=== PATIENT | female | born 1995 | race Caucasian/White ===

== ENCOUNTER 2019-11-17 15:24 | Outpatient (CLI) | payer OTHER, SELFPAY ==
[2019-11-19 08:57] LABS: TB Skin Test Erythema 0 mm; TB Skin Test Induration 0 mm (0-10); TB Skin Test Interpretation Negative (Negative); TB Skin Test Site Left Arm
== END 2019-11-17 15:25 | disposition home or self-care (01) ==
LOC: CHSLAB 15:27
PROVIDERS: PCP Family Medicine; Visit Provider Family Medicine
DX: Z02.1 Encounter for pre-employment examination (principal); Z00.00 Encounter for general adult medical examination without abnormal findings
CPT/HCPCS: 36415; 86580; 87491; 87591

== ENCOUNTER 2020-08-02 09:41 | Outpatient (CLI) | payer OTHER, SELFPAY ==
--- NOTE | ~2020-08-02 | US_ITS ---
US breast LT limited 08/02/2020 10:09 Indication: Palpable lump that has grown for 2 weeks. Procedure: High-resolution Limited ultrasound of the left breast Comparison: No prior studies for comparison. Findings: In the area of palpable concern at 4:00, 5 cm from the nipple there is a superficially loca steven oval hypoechoic mass measuring 1.6 x 0.2 x 1.4 cm. This mass contains low level internal echoes w ith parallel orientation and possible tract to the skin surface, most likely complicated/infected bunny aceous cyst. No posterior features. Impression: 1: Oval circumscribed hypoechoic mass subcutaneous aspect of the left breast at 4:00, 5 cm from the n ipple measuring up to 1.4 cm. This is most likely benign complicated/infected sebaceous cyst with pos sible sinus tract to the skin surface. Consider surgical excision. BI-RADS CATEGORY 3-PROBABLY BENIGN FINDING RECOMMENDATION: Recommend follow-up ultrasound in 2-3 months following appropriate therapy. If the ma ss is persistent at that time, consider additional evaluation with mammography. Reviewed, dictated and finalized at location A. Impression: 1: Oval circumscribed hypoechoic mass subcutaneous aspect of the left breast at 4:00, 5 cm from the nipple measuring up to 1.4 cm. This is most likely benign complicated/infected sebaceous cyst with possible sinus tract to the skin surfa ce. Consider surgical excision. BI-RADS CATEGORY 3-PROBABLY BENIGN FINDING RECOMMENDATION: Recommend follow-up ultrasound in 2-3 months following appropri ate therapy. If the mass is persistent at that time, consider additional evalua tion with mammography.
== END 2020-08-02 09:42 | disposition home or self-care (01) ==
LOC: CHSIMG 09:43
PROVIDERS: PCP Family Medicine; Visit Provider Family Medicine
DX: N63.20 Unspecified lump in the left breast, unspecified quadrant (principal); Q83.9 Congenital malformation of breast, unspecified
CPT/HCPCS: 76642

== ENCOUNTER 2020-09-01 10:33 | Outpatient (CLI) | payer OTHER, SELFPAY ==
[2020-09-01 10:45] LABS: Basophils Absolute Auto 0.05 K/mm3 (0.00-0.10); Basophils Percent Auto 0.7 % (0.0-1.0); Eosinophils Absolute Auto 0.11 K/mm3 (0.02-0.50); Eosinophils Percent Auto 1.6 % (1.0-6.0); Hematocrit 37.6 % (35.0-49.0); Hemoglobin 11.9 g/dL (12.0-15.0); Immature Granulocyte Absolute 0.02 K/mm3 (0.00-0.00); Immature Granulocyte Percent A 0.3 % (0.0-0.0); Lymphocytes Absolute Auto 2.03 K/mm3 (1.10-4.50); Lymphocytes Percent Auto 29.3 % (18.0-42.0); Mean Corpuscular HGB Conc 31.6 g/dL (32.0-36.0); Mean Corpuscular Hemoglobin 25.4 pg (27.0-31.0); Mean Corpuscular Volume 80.2 fL (78.0-102.0); Mean Platelet Volume 9.3 fl (9.2-11.8); Monocytes Absolute Auto 0.66 K/mm3 (0.10-0.90); Monocytes Percent Auto 9.5 % (2.0-11.0); Neutrophils Absolute Auto 4.1 K/mm3 (1.7-7.2); Neutrophils Percent Auto 58.6 % (50.0-70.0); Platelet Count Result 288 K/mm3 (150-420); Red Blood Count 4.69 M/mm3 (4.20-5.40); Red Cell Distribution Width 13.5 % (11.6-14.4); White Blood Count 6.9 K/mm3 (4.8-10.8)
[2020-09-01 12:02] LABS: Anion Gap 13 mmol/L (8-16); Blood Urea Nitrogen 21 mg/dL (7-18); Calcium 8.8 mg/dL (8.5-10.1); Carbon Dioxide 24 mmol/L (21-32); Chloride 104 mmol/L (98-108); Estimated Glomerular Filt Rate > 60; Glucose 81 mg/dL (70-99); Osmolality Calculated 294 mOsm/kg (285-295); Potassium 4.3 mmol/L (3.5-5.1); Sodium 141 mmol/L (136-145)
== END 2020-09-01 10:34 | disposition home or self-care (01) ==
LOC: CHSLAB 10:35
PROVIDERS: PCP Family Medicine
DX: N60.09 Solitary cyst of unspecified breast (principal); Z01.818 Encounter for other preprocedural examination
CPT/HCPCS: 36415; 80048; 85025

== ENCOUNTER 2020-12-09 10:22 | Outpatient (CLI) | payer OTHER, SELFPAY ==
[2020-12-09 10:30] LABS: Hematocrit 37.1 % (35.0-49.0); Hemoglobin 11.8 g/dL (12.0-15.0); Mean Corpuscular HGB Conc 31.8 g/dL (32.0-36.0); Mean Corpuscular Hemoglobin 25.9 pg (27.0-31.0); Mean Corpuscular Volume 81.5 fL (78.0-102.0); Mean Platelet Volume 9.2 fl (9.2-11.8); Platelet Count Result 296 K/mm3 (150-420); Red Blood Count 4.55 M/mm3 (4.20-5.40); Red Cell Distribution Width 14.1 % (11.6-14.4); White Blood Count 6.9 K/mm3 (4.8-10.8)
== END 2020-12-09 10:23 | disposition home or self-care (01) ==
LOC: CHSLAB 10:23
PROVIDERS: PCP Family Medicine; Visit Provider Family Medicine
DX: N92.1 Excessive and frequent menstruation with irregular cycle (principal)
CPT/HCPCS: 36415; 85027

== ENCOUNTER 2020-12-10 16:07 | Outpatient (CLI) | payer OTHER, SELFPAY ==
--- NOTE | ~2020-12-10 | US_ITS ---
EXAMINATION: US pelvic complete w TV DATE: 12/10/2020 16:37 INDICATION: Pelvic pain, irregular menses TECHNIQUE: Multiple transabdominal and endovaginal sonographic images of the pelvis were obtained. COMPARISON: None. FINDINGS: The uterus measures 8.3 x 4.5 x 7.1 cm. The endometrial complex measures 9 mm. The right ov robi is not visualized however no right adnexal abnormality is seen. The left ovary measures 2.4 x 1.8 x 1.5 cm. There is normal vascular flow in the left ovary. There is trace free fluid in the pelvis, likely physiologic. IMPRESSION: 1. No sonographic correlate for the patient's symptoms. Reviewed, dictated and finalized at location B.
== END 2020-12-10 16:08 | disposition home or self-care (01) ==
LOC: CHSIMG 16:09
PROVIDERS: PCP Family Medicine; Visit Provider Nurse Practitioner Family
DX: N92.1 Excessive and frequent menstruation with irregular cycle (principal); R10.2 Pelvic and perineal pain
CPT/HCPCS: 76830; 76856

== ENCOUNTER 2021-06-09 14:28 | Outpatient (CLI) | payer OTHER, SELFPAY ==
[2021-06-11 08:53] LABS: TB Skin Test Erythema 0 mm; TB Skin Test Induration 0 mm (0-10); TB Skin Test Interpretation Negative (Negative); TB Skin Test Site Left Arm
== END 2021-06-09 14:29 | disposition home or self-care (01) ==
LOC: CHSLAB 14:30
PROVIDERS: PCP Family Medicine; Visit Provider Family Medicine
DX: Z02.1 Encounter for pre-employment examination (principal)
CPT/HCPCS: 36415; 86580

== ENCOUNTER 2021-12-31 23:37 | Emergency (ER) | payer OTHER, SELFPAY ==
--- NOTE | ~2021-12-31 | CT_ITS ---
EXAMINATION: CT abdomen pelvis wo con DATE: 01/01/2022 01:43 INDICATION: Abdominal pain, fever, vomiting TECHNIQUE: Computed tomography (CT) of the abdomen and pelvis was performed without intravenous contr ast. Automated exposure control and iterative reconstruction technique were employed. Exam dose: 400 .55 mGy-cm total exam DLP. COMPARISON: None. FINDINGS: The lung bases are clear. Normal heart size. No pericardial or pleural effusion. The gallbladder is not visualized, presumably resected. No hepatic, splenic, pancreatic, and adrenal or renal space-occupying mass lesion is evident on this limited noncontrast examination. No bile duct or pancreatic duct dilatation or pancreatic calcification. No urinary tract calculus or hydroureteronephrosis. Normal caliber of the abdominal aorta. No intraperitoneal or retroperitoneal or pelvic mass lesion or adenopathy or ascites. Normal appendix. No bowel obstruction or intraperitoneal free air. The uterus, adnexal areas and urinary bladder are unremarkable. Included skeletal structures are unremarkable. IMPRESSION: Normal appendix Reviewed, dictated and finalized at [facility]. Reviewed, dictated and finalized at location A. AND [employer]DER IMPRESSION: Normal appendix
[2021-12-31 23:40] VITALS: BP 106/73; PULSE 114; RESP 20; TEMP 36.9; O2SAT 98
[2022-01-01] MEDS: SODIUM CHLORIDE 0.9% IV 1,000 ML 999 ML IV CONT (00:33)
[2022-01-01] MEDS: ONDANSETRON INJ 4 MG/2 ML VIAL IV PUSH (00:33)
[2022-01-01 01:01] LABS: Appearance Urine Clear (Clear); Bilirubin Urine Negative (Negative); Blood Urine Negative (Negative); Glucose Urine UA Negative (Negative); Ketones Urine Negative (Negative); Leukocyte Esterase Ur 1+ LEU/UL (Negative); Nitrate Urine Negative (Negative); Protein Urine Negative (Negative); Specific Grav Ur 1.025 (1.010-1.020); Urobilinogen Urine 0.2 mg/dL (0.2-1.0)
[2022-01-01 01:02] LABS: Basophils Absolute Auto 0.03 K/mm3 (0.00-0.10); Basophils Percent Auto 0.4 % (0.0-1.0); Eosinophils Absolute Auto 0.05 K/mm3 (0.02-0.50); Eosinophils Percent Auto 0.6 % (1.0-6.0); Hematocrit 32.9 % (35.0-49.0); Hemoglobin 10.2 g/dL (12.0-15.0); Immature Granulocyte Absolute 0.09 K/mm3 (0.00-0.00); Immature Granulocyte Percent A 1.2 % (0.0-0.0); Lymphocytes Absolute Auto 0.76 K/mm3 (1.10-4.50); Lymphocytes Percent Auto 9.8 % (18.0-42.0); Mean Corpuscular Hemoglobin 25.2 pg (27.0-31.0); Mean Corpuscular Volume 81.2 fL (78.0-102.0); Mean Platelet Volume 9.6 fl (9.2-11.8); Monocytes Absolute Auto 0.76 K/mm3 (0.10-0.90); Monocytes Percent Auto 9.8 % (2.0-11.0); Neutrophils Absolute Auto 6.1 K/mm3 (1.7-7.2); Neutrophils Percent Auto 78.2 % (50.0-70.0); Platelet Count Result 285 K/mm3 (150-420); Red Blood Count 4.05 M/mm3 (4.20-5.40); Red Cell Distribution Width 13.2 % (11.6-14.4); White Blood Count 7.8 K/mm3 (4.8-10.8)
[2022-01-01 01:03] LABS: SARS-CoV-2 RNA PCR Negative (Negative)
[2022-01-01 01:09] LABS: Alanine Aminotransferase 17 U/L (14-59); Albumin Level 3.7 g/dL (3.4-5.0); Alkaline Phosphatase 61 U/L (46-116); Anion Gap 9 mmol/L (8-16); Aspartate Amino Transferase 14 U/L (15-37); Bilirubin,Total 0.2 mg/dL (0.00-1.00); Blood Urea Nitrogen 8 mg/dL (7-18); Calcium 8.1 mg/dL (8.5-10.1); Carbon Dioxide 26 mmol/L (21-32); Chloride 104 mmol/L (98-108); Estimated Glomerular Filt Rate > 60; Glucose 110 mg/dL (70-99); Osmolality Calculated 287 mOsm/kg (285-295); Potassium 3.4 mmol/L (3.5-5.1); Sodium 139 mmol/L (136-145); Total Protein 7.1 g/dL (6.4-8.2)
[2022-01-01 01:12] LABS: Add Urine Microscopic? YES; Amorphous Sediment Urine Few; Bacteria Urine Trace /hpf; Color Urine Light Yellow (Yellow); Squamous Epithelial Cell Urine Moderate /hpf (Few)
[2022-01-01 01:13] LABS: Mucus Urine Heavy /lpf
[2022-01-01 01:15] LABS: Influenza A QL RT-PCR Positive (Negative); Influenza B QL RT-PCR Negative (Negative)
[2022-01-01 01:17] LABS: Lipase 69 U/L (73-393)
[2022-01-01 01:21] LABS: Strep Group A RT-PCR Not Detected (Negative)
[2022-01-01 01:26] LABS: SPREG INTERNAL CONTROL Positive; Serum Qual hCG Negative
--- NOTE | 2022-01-01 01:32 | PC.NURSE ---
pt to xray with xray staff per stretcher.
[2022-01-01 02:57] VITALS: BP 105/70; PULSE 111; RESP 20; TEMP 38.6; O2SAT 98
[2022-01-01] MEDS: ACETAMINOPHEN 325 MG TABLET 650 MG PO (02:59)
[2022-01-01] MEDS: IBUPROFEN 400 MG TABLET 800 MG PO (03:00)
--- NOTE | 2022-01-01 03:33 | ED.NAVMDI ---
HPI - Nausea/Vomiting/Diarrhea General Chief complaint: Nausea/Vomiting/Diarrhea Stated complaint: SICKNESS Time Seen by Provider: 12/31/21 23:39 Source: patient and RN notes reviewed Mode of arrival: ambulatory Limitations: no limitations History of Present Illness MD elicited complaint: nausea, vomiting and diarrhea Onset (ago): day(s) (1) Description of vomiting: food contents and watery Associated nausea: Yes Associated abdominal pain: Yes Location of pain: periumbilical Pain consistency: constant Severity: mild Pain scale (0-10): 4 Quality: cramping, aching and dull Exacerbating factors: none Relieving factors: none Treatment prior to arrival: other OTC medicine Related Data Home Medications Medication Instructions Recorded Confirmed albuterol sulfate 90 mcg/actuation 1 puff inhalation Q4H PRN Wheezing 11/17/19 01/01/22 aerosol inhaler tramadol 50 mg tablet 50 mg PO Q4H PRN pain 09/08/20 Allergies Allergy/AdvReac Type Severity Reaction Status Date / Time cefdinir [From Omnicef] Allergy Intermediate Swelling Verified 04/29/21 09:36 Review of Systems Review of Systems: All systems reviewed & are unremarkable except as noted in HPI and below Constitutional: Constitutional: Reports no additional constitutional complaints Eyes: Eyes: Reports no additional eye complaints ENT: Reports system reviewed and no additional complaints, except as documented, Reports nasal congestion and Reports sore throat Cardiovascular: Cardiovascular: Reports no additional cardiovascular complaints Respiratory: Respiratory: Reports chest congestion, Reports cough, Reports dyspnea and Reports wheezing Gastrointestinal: Gastrointestinal: Reports no additional gastrointestinal complaints, Reports diarrhea, Reports nausea and Reports vomiting Genitourinary: Genitourinary: Reports no additional female genitourinary complaints Musculoskeletal: Musculoskeletal: Reports no additional musculoskeletal complaints and Reports myalgias Integumentary/Breasts: Skin/Breast: Reports system reviewed and no additional complaints, except as docu Neurologic: Reports system reviewed and no additional complaints, except as documented Psychiatric: Psychiatric: Reports no additional psychiatric complaints Endocrine: Endocrine: Reports no additional endocrine complaints Hematologic/Lymphatic: Hematologic/Lymphatic: Reports no additional hematologic/lymphatic complaints Allergic/Immunologic: Allergic/Immunologic: Reports no additional allergic/immunologic complaints PMFSH Past Medical History Medical History Asthma Sebaceous cyst of breast Viral conjunctivitis Surgical History Surgical History H/O removal of cyst right thigh and left breast 09/06/20 History of delivery History of tubal ligation Social History Social History Smoking status: Never smoker Exam Const: General: no acute distress and well nourished Nutritional Appearance: well nourished Orientation/consciousness: patient oriented x3 Limitations: no limitations HENMT: Head: normal to inspection Ears: external ears normal, TM's normal bilaterally and EAC's normal Face/Nose/Sinus: Normal external nose present, Normal nares present, normal facial exam and sinuses nontender Face and sinus: normal facial exam and sinuses nontender Mouth: Yes Normal oral and palatal mucosa present and Yes moist mucous membranes Teeth and gingiva: dentition normal Throat: posterior oropharynx normal Eyes: Conjunctivae: conjunctivae normal Pupils: Equal, round and reactive pupils present EOM: EOMs intact bilaterally Neck: Neck: normal visual inspection, no lymphadenopathy and no meningeal signs Chest: Chest palpation & inspection: normal inspection of the chest Resp: Effort & Inspection: normal respiratory effor
[2022-01-01 03:53] VITALS: TEMP 37.3
[2022-01-01] MEDS: SODIUM CHLORIDE 0.9% IV 500 ML 999 ML IV CONT (03:53)
[2022-01-01 03:54] VITALS: BP 100/68; PULSE 94; RESP 20; TEMP 37.3; O2SAT 94
[2022-01-01 04:20] VITALS: BP 97/64; PULSE 93; RESP 20; TEMP 37.1; O2SAT 95
[2022-01-01 04:55] VITALS: BP 105/63; PULSE 82; RESP 20; TEMP 37.1; O2SAT 94
== END 2022-01-01 05:00 | disposition home or self-care (01) ==
PROVIDERS: Emergency Provider Emergency Medicine; PCP Family Medicine
DX: J11.1 Influenza due to unidentified influenza virus with other respiratory manifestations (principal); K52.9 Noninfective gastroenteritis and colitis, unspecified; N39.0 Urinary tract infection, site not specified; Z20.822 Contact with and (suspected) exposure to COVID-19
CPT/HCPCS: 36415; 74176; 80053; 81001; 83690; 84703; 85025; 87086; 87088; 87502; 87651; 96361; 96374; 99284; A9270; J2405; J7030; J7040; U0003; U0005

== ENCOUNTER 2022-02-25 20:29 | Emergency (ER) | payer OTHER, SELFPAY ==
[2022-02-25 20:32] VITALS: BP 163/98; PULSE 76; RESP 18; TEMP 36.8; O2SAT 98
--- NOTE | 2022-02-25 20:35 | ED.GENADULT ---
HPI - General Adult General Chief complaint: Unspecified Stated complaint: Toothache Source: patient Mode of arrival: ambulatory Limitations: no limitations History of Present Illness HPI narrative: this is a 27-year-old female who presents with right upper dental pain with surrounding gum inflammation with a tender swollen right submandibular gland with no fever chills no nausea vomiting no shortness of breath. Onset (ago): day(s) Location: mouth Related Data Home Medications Medication Instructions Recorded Confirmed albuterol sulfate 90 mcg/actuation 1 puff inhalation Q4H PRN Wheezing 11/17/19 01/01/22 aerosol inhaler tramadol 50 mg tablet 50 mg PO Q4H PRN pain 09/08/20 Allergies Allergy/AdvReac Type Severity Reaction Status Date / Time cefdinir [From Omnicef] Allergy Intermediate Swelling Verified 04/29/21 09:36 Review of Systems Review of Systems: All systems reviewed & are unremarkable except as noted in HPI and below PMFSH Past Medical History Medical History Asthma Sebaceous cyst of breast Viral conjunctivitis Surgical History Surgical History H/O removal of cyst right thigh and left breast 09/06/20 History of delivery History of tubal ligation Social History Social History Smoking status: Never smoker Exam Const: General: cooperative, healthy appearing, comfortable, no acute distress and well developed HENMT: Head: normal to inspection Ears: hearing grossly normal bilaterally Face/Nose/Sinus: Normal external nose present Mouth: Yes Normal oral and palatal mucosa present Teeth and gingiva: abnormal tooth and associated gingiva Throat: posterior oropharynx normal Eyes: General: appearance normal, both eyes and all related structures Neck: Neck: normal visual inspection and full ROM Chest: Chest palpation & inspection: normal inspection of the chest Resp: Effort & Inspection: normal respiratory effort and able to speak in complete sentences Auscultation: clear to auscultation bilaterally Cardio: Jugular venous distension: no JVD Palpation: normal PMI Rate: regular rate Rhythm: regular rhythm GI: Inspection: normal to inspection Percussion: Yes normal to percussion : General: Yes bimanual renal exam normal bilaterally Back/Spine/Pelvis: Back: no CVA tenderness Skin: General skin exam: normal color and no rashes or lesions noted Lesions: no lesions Rashes: no rashes Neuro: General: oriented to person, oriented to place, oriented to time and patient oriented x3 Extrem: General: normal to inspection, full ROM and capillary refill normal Psych: Appearance: grossly normal Mental Status: mental status grossly normal Course Course Emergency Course: Patient received a dose of oral Bactrim and a dose of IM Toradol for pain relief Vital Signs Vital signs: Vital Signs Temperature 36.8 C 02/25/22 20:32 Pulse Rate 76 02/25/22 20:32 Respiratory Rate 18 02/25/22 20:32 Blood Pressure 163/98 H 02/25/22 20:32 Pulse Oximetry 98 02/25/22 20:32 Oxygen Delivery Room Air 02/25/22 20:32 Temperature 36.8 C 02/25/22 20:32 Pulse Rate 76 02/25/22 20:32 Respiratory Rate 18 02/25/22 20:32 Blood Pressure 163/98 H 02/25/22 20:32 Pulse Oximetry 98 02/25/22 20:32 Oxygen Delivery Room Air 02/25/22 20:32 Medical Decision Making Vital Signs Vital Signs: Vital Signs Temperature 36.8 C 02/25/22 20:32 Pulse Rate 76 02/25/22 20:32 Respiratory Rate 18 02/25/22 20:32 Blood Pressure 163/98 H 02/25/22 20:32 Pulse Oximetry 98 02/25/22 20:32 Oxygen Delivery Room Air 02/25/22 20:32 Temperature 36.8 C 02/25/22 20:32 Pulse Rate 76 02/25/22 20:32 Respiratory Rate 18 02/25/22 20:32 Blood Pressure 163/98 H 02/25/22 20:32 Pulse Oximetry 98
[2022-02-25] MEDS: SULFAMETHOXAZOLE/TRIMETHOPRIM 800/160 MG DS TABLET 1 TAB PO (20:48)
[2022-02-25] MEDS: KETOROLAC (*BKC) 60 MG/2 ML VIAL IM (20:49)
[2022-02-25 21:12] VITALS: BP 122/88; PULSE 69; RESP 20; TEMP 36.7; O2SAT 98
== END 2022-02-25 21:14 | disposition home or self-care (01) ==
PROVIDERS: Emergency Provider Emergency Medicine; PCP Family Medicine
DX: K04.7 Periapical abscess without sinus (principal); J45.909 Unspecified asthma, uncomplicated
CPT/HCPCS: 96372; 99283; A9270; J1885

== ENCOUNTER 2022-03-17 14:26 | Outpatient (CLI) | payer OTHER, SELFPAY ==
[2022-03-20 13:01] LABS: TB Skin Test Erythema 0 mm; TB Skin Test Induration 0 mm (0-10); TB Skin Test Interpretation Negative (Negative); TB Skin Test Site Left Arm
== END 2022-03-17 14:27 | disposition home or self-care (01) ==
LOC: CHSLAB 14:28
PROVIDERS: PCP Family Medicine; Visit Provider Family Medicine
DX: Z02.1 Encounter for pre-employment examination (principal)
CPT/HCPCS: 36415; 86580

== ENCOUNTER 2023-01-01 13:14 | Outpatient (CLI) | payer OTHER, SELFPAY ==
[2023-01-01 14:01] LABS: Influenza A QL RT-PCR Negative (Negative); Influenza B QL RT-PCR Negative (Negative); SARS-CoV-2 RNA PCR Negative (Negative)
== END 2023-01-01 13:15 | disposition home or self-care (01) ==
LOC: CHSLAB 13:16
PROVIDERS: PCP Nurse Practitioner Family; Visit Provider Nurse Practitioner Family
DX: Z20.822 Contact with and (suspected) exposure to COVID-19 (principal)
CPT/HCPCS: 87636

== ENCOUNTER 2023-09-14 11:16 | Outpatient (CLI) | payer OTHER, SELFPAY ==
[2023-09-16 13:08] LABS: Rubella IgG Antibody 1.63 Index; Rubeola Measles IgG >300.00 AU/mL
[2023-09-16 15:28] LABS: TB Skin Test Erythema 0 mm; TB Skin Test Induration 0 mm (0-10); TB Skin Test Interpretation Negative (Negative); TB Skin Test Site Left Arm
== END 2023-09-14 11:17 | disposition home or self-care (01) ==
LOC: CHSLAB 11:18
PROVIDERS: PCP Nurse Practitioner Family; Visit Provider Nurse Practitioner Family
DX: Z02.1 Encounter for pre-employment examination (principal)
CPT/HCPCS: 36415; 86580; 86735; 86765

== ENCOUNTER 2024-02-05 10:05 | Outpatient (CLI) | payer OTHER, SELFPAY ==
--- NOTE | ~2024-02-05 | US_ITS ---
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 INTERPRETATION: At the 5:00 position left breast, 5 cm from the nipple, there is a 11 x 8 x 2 mm probable hypoechoic structure just deep to skin surface, likely a small sebaceous cyst. No other abnormality seen in the region scanned. IMPRESSION: Probable small sebaceous cyst at the 5:00 position left breast, as above. Clinical follow-up recommen ded. Repeat imaging can be considered if the lesion progresses or fails to resolve. BI-RADS CATEGORY: BI-RADS 2: Benign Reviewed, dictated and finalized at location . IER AND SALESPERSON IMPRESSION: Probable small sebaceous cyst at the 5:00 position left breast, as above. Clini anna follow-up recommended. Repeat imaging can be considered if the lesion progr esses or fails to resolve. BI-RADS CATEGORY: BI-RADS 2: Benign
[2024-02-05 10:28] LABS: Basophils Absolute Auto 0.05 K/mm3 (0.00-0.10); Basophils Percent Auto 0.7 % (0.0-1.0); Eosinophils Absolute Auto 0.07 K/mm3 (0.02-0.50); Eosinophils Percent Auto 0.9 % (1.0-6.0); Hematocrit 34.3 % (35.0-49.0); Immature Granulocyte Absolute 0.02 K/mm3 (0.00-0.00); Immature Granulocyte Percent A 0.3 % (0.0-0.0); Lymphocytes Absolute Auto 2.07 K/mm3 (1.10-4.50); Lymphocytes Percent Auto 27.6 % (18.0-42.0); Mean Corpuscular HGB Conc 32.1 g/dL (32-36); Mean Corpuscular Hemoglobin 24.8 pg (27.0-31.0); Mean Corpuscular Volume 77.3 fL (78.0-102.0); Mean Platelet Volume 9.1 fl (9.2-11.8); Monocytes Absolute Auto 0.64 K/mm3 (0.10-0.90); Monocytes Percent Auto 8.5 % (2.0-11.0); Neutrophils Absolute Auto 4.64 K/mm3 (1.70-7.20); Platelet Count Result 300 K/mm3 (150-420); Red Blood Count 4.44 M/mm3 (4.20-5.40); Red Cell Distribution Width 14.3 % (11.6-14.4); White Blood Count 7.5 K/mm3 (4.8-10.8)
[2024-02-05 10:39] LABS: Hemoglobin A1C 5.4 % (<5.7)
[2024-02-05 10:53] LABS: Alanine Aminotransferase 18 U/L (14-59); Albumin Level 3.5 g/dL (3.4-5.0); Alkaline Phosphatase 76 U/L (46-116); Anion Gap 10 mmol/L (4-12); Aspartate Amino Transferase 12 U/L (15-37); Bilirubin,Total 0.2 mg/dL (0.00-1.00); Blood Urea Nitrogen 11 mg/dL (7-18); Calcium 8.5 mg/dL (8.5-10.1); Carbon Dioxide 26 mmol/L (21-32); Chloride 105 mmol/L (98-108); Cholesterol 163 mg/dL (0-200); Estimated Glomerular Filt Rate > 60; Glucose 81 mg/dL (70-99); HDL Direct 39 mg/dL (40-60); LDL Cholesterol Calculated 105 mg/dL (<130); Osmolality Calculated 290 mOsm/kg (285-295); Potassium 3.9 mmol/L (3.5-5.1); Sodium 141 mmol/L (136-145); Total Protein 6.8 g/dL (6.4-8.2); Triglycerides 96 mg/dL (0-150)
[2024-02-05 11:22] LABS: Thyroid Stimulating Hormone Reflex 1.49 u/IU/mL (0.36-3.74)
[2024-02-08 16:05] LABS: Iron 25 ug/dL (50-170); Percent Iron Saturation 7 % (12-57)
== END 2024-02-05 10:06 | disposition home or self-care (01) ==
PROVIDERS: PCP Nurse Practitioner Family; Visit Provider Nurse Practitioner Family
DX: Z00.00 Encounter for general adult medical examination without abnormal findings (principal); Q83.9 Congenital malformation of breast, unspecified; N60.89 Other benign mammary dysplasias of unspecified breast
CPT/HCPCS: 36415; 76642; 80053; 80061; 83036; 83540; 83550; 84443; 85025

== ENCOUNTER 2024-07-07 13:56 | Outpatient (CLI) | payer OTHER, SELFPAY ==
[2024-07-07 14:13] LABS: Basophils Absolute Auto 0.05 K/mm3 (0.00-0.10); Basophils Percent Auto 0.5 % (0.0-1.0); Eosinophils Absolute Auto 0.11 K/mm3 (0.02-0.50); Eosinophils Percent Auto 1.1 % (1.0-6.0); Hematocrit 35.2 % (35.0-49.0); Hemoglobin 10.8 g/dL (12.0-15.0); Immature Granulocyte Absolute 0.03 K/mm3 (0.00-0.00); Immature Granulocyte Percent A 0.3 % (0.0-0.0); Lymphocytes Absolute Auto 2.46 K/mm3 (1.10-4.50); Lymphocytes Percent Auto 24.3 % (18.0-42.0); Mean Corpuscular HGB Conc 30.7 g/dL (32-36); Mean Corpuscular Hemoglobin 23.9 pg (27.0-31.0); Mean Corpuscular Volume 77.9 fL (78.0-102.0); Mean Platelet Volume 9.1 fl (9.2-11.8); Monocytes Absolute Auto 0.87 K/mm3 (0.10-0.90); Monocytes Percent Auto 8.6 % (2.0-11.0); Neutrophils Percent Auto 65.2 % (50.0-70.0); Platelet Count Result 302 K/mm3 (150-420); Red Blood Count 4.52 M/mm3 (4.20-5.40); Red Cell Distribution Width 14.5 % (11.6-14.4); White Blood Count 10.1 K/mm3 (4.8-10.8)
[2024-07-07 14:39] LABS: Iron 39 ug/dL (37-170)
[2024-07-07 14:48] LABS: Percent Iron Saturation 10 % (20-50)
[2024-07-09 13:43] LABS: TB Skin Test Interpretation Negative (Negative); TB Skin Test Site Left Arm
[2024-07-09 14:02] LABS: TB Skin Test Erythema 0 mm; TB Skin Test Induration 0 mm (0-10)
== END 2024-07-07 13:57 | disposition home or self-care (01) ==
LOC: CHSLAB 13:57
PROVIDERS: PCP Nurse Practitioner Family; Visit Provider Nurse Practitioner Family
DX: D50.9 Iron deficiency anemia, unspecified (principal); Z02.1 Encounter for pre-employment examination; R39.9 Unspecified symptoms and signs involving the genitourinary system
CPT/HCPCS: 36415; 83540; 83550; 85025; 86580; 87086